=== PATIENT | female | born 2000 | race Caucasian/White ===

== ENCOUNTER 2019-08-21 14:21 | Emergency (ER) | payer OTHER, MEDICAID ==
[~2019-08-21] VITALS: Ht 162.6 cm; Wt 55.0 kg
[2019-08-21 17:52] LABS: HEMATOCRIT. 32.8 % (36.0-48.0); HEMOGLOBIN. 10.3 g/dL (12.0-16.0); MEAN CORPUSCULAR HEMOGLOBIN 21.2 pg (28.0-32.0); MEAN CORPUSCULAR VOLUME 67.9 fL (81.0-99.0); MEAN PLATELET VOLUME 8.2 fl (7.4-10.4); PLATELET 312 x1000/uL (130-400); RED BLOOD CELL COUNT 4.83 mill/uL (4.2-5.4); RED CELL DISTRIBUTION WIDTH 18.8 % (11.6-14.6)
[2019-08-21 17:57] LABS: CHLORIDE 108 mEq/L (98-107)
[2019-08-21 18:03] LABS: ETHANOL BLOOD < 10 mg/dL
[2019-08-21 18:08] LABS: PLATELET ESTIMATE NORMAL
[2019-08-21] MEDS ORDERED: LORAZEPAM 2MG/ML CPJ IM ONE (18:15)
[2019-08-21] MEDS ORDERED: HALOPERIDOL LACTATE 5MG/ML VIAL IM ONE (18:15)
[2019-08-21 18:43] LABS: CLARITY URINE CLEAR (CLEAR); COLOR URINE YELLOW (YELLOW); KETONES URINE TRACE (NEGATIVE); LEUKOCYTE ESTERASE URINE NEGATIVE (NEGATIVE); NITRITE URINE NEGATIVE (NEGATIVE); OCCULT BLOOD URINE NEGATIVE (NEGATIVE); PH URINE 5.5 (4.5-8.0); PROTEIN URINE NEGATIVE (NEGATIVE)
[2019-08-21 18:58] LABS: OPIATES URINE SCREEN NEGATIVE (NEGATIVE); PHENCYCLIDINE URINE SCREEN NEGATIVE (NEGATIVE)
[2019-08-21 18:59] LABS: *BARBITURATES SCREEN URINE NEGATIVE (NEGATIVE); *BENZODIAZEPINES SCREEN URINE NEGATIVE (NEGATIVE); *COCAINE SCREEN URINE NEGATIVE (NEGATIVE); METHADONE URINE SCREEN NEGATIVE (NEGATIVE)
[2019-08-21 19:01] LABS: *AMPHETAMINES SCREEN URINE PRESUMTIVE POSITIVE (NEGATIVE); CANNABINOID URINE SCREEN PRESUMTIVE POSITIVE (NEGATIVE)
[2019-08-22 08:07] VITALS: BP 115/70
== END 2019-08-22 10:34 | disposition home or self-care (01) ==
LOC: ER 14:21
DX: F15.120 Other stimulant abuse with intoxication, uncomplicated (principal); G93.40 Encephalopathy, unspecified; F12.10 Cannabis abuse, uncomplicated; R41.82 Altered mental status, unspecified; R45.1 Restlessness and agitation
CPT/HCPCS: 36415; 80053; 80305; 80307; 80320; 80329; 81003; 81025; 82962; 85025; 96372; 99283; J1630; J2060; G0480